=== PATIENT | female | born 1960 | race Two or more races ===

== ENCOUNTER 2021-04-07 14:15 | Emergency (ER) | payer MEDICARE, MEDICAID ==
[~2021-04-07] VITALS: Ht 154.9 cm; Wt 72.7 kg
[2021-04-07 14:58] VITALS: BP 120/71
[2021-04-07 15:22] LABS: BASOPHILS % (AUTO) 0.9 % (0.0-2.0); EOSINOPHILS % (AUTO) 1.2 % (1.0-6.0); HEMATOCRIT 35.3 % (36-46); HEMOGLOBIN 12.3 g/dL (12.0-16.0); LYMPHOCYTES # (AUTO) 1.5 K/uL (1.0-4.8); LYMPHOCYTES % (AUTO) 34.8 % (22.0-44.0); MEAN CORPUSCULAR HEMOGLOBIN 28.4 pg (26.0-34.0); MEAN CORPUSCULAR HGB CONC 34.8 G/dL (31.0-37.0); MEAN CORPUSCULAR VOLUME 82 fL (80-100); MONOCYTES # (AUTO) 0.6 K/uL (0.1-1.0); MONOCYTES % (AUTO) 13.7 % (2.0-9.0); NEUTROPHILS # (AUTO) 2.2 K/uL (1.8-7.7); NEUTROPHILS % (AUTO) 49.4 % (40.0-70.0); PLATELET COUNT (AUTO) 233 K/uL (150-450); RED BLOOD CELL COUNT(AUTO) 4.33 MIL/uL (4.00-5.20); RED CELL DISTRIBUTION WIDTH 12.9 % (11.5-14.5)
[2021-04-07 15:35] LABS: INR 1.1 (0.9-1.1); PROTHROMBIN TIME 11.7 SEC (9.4-11.6)
[2021-04-07 15:43] LABS: B-TYPE NATRIURETIC PEPTIDE 27 pg/mL (0-100)
[2021-04-07 15:53] LABS: ANION GAP 9 mmol/L (8-16); CALCIUM, TOTAL 8.4 mg/dL (8.8-10.5); CARBON DIOXIDE 28 mmol/L (22-29); CHLORIDE 103 mmol/L (98-107); CREATININE 0.81 mg/dL (0.60-1.30); GLOMERULAR FILTR. RATE CALC > 60 mL/min (>60); GLUCOSE,RANDOM 159 mg/dL (70-110); SODIUM SERUM 140 mmol/L (136-145); UREA NITROGEN, BLOOD 14 mg/dL (7-18)
[2021-04-07 15:59] LABS: ALANINE AMINOTRANSFERASE 24 U/L (12-78); ALBUMIN 3.4 g/dL (3.4-5.0); ALKALINE PHOSPHATASE 108 U/L (46-116); ASPARTATE AMINOTRANSFERASE 21 U/L (15-37); BILIRUBIN,TOTAL 0.8 mg/dL (0.1-1.0); CREATINE KINASE, TOTAL ONLY 20 U/L (26-192)
[2021-04-07] MEDS ORDERED: ACETAMINOPHEN 500 MG TABLET PO ONE (16:15)
[2021-04-07 17:55] LABS: COVID AG,FIA SOURCE NASOPHARYNGEAL
[2021-04-07 18:22] LABS: INFLUENZA TYPE A NEGATIVE FOR TYPE A (NEGATIVE); INFLUENZA TYPE B NEGATIVE FOR TYPE B (NEGATIVE)
== END 2021-04-07 20:22 | disposition home or self-care (01) ==
LOC: EMS 14:15
DX: U07.1 COVID-19 (principal)
CPT/HCPCS: 36415; 71045; 80053; 82550; 83880; 84484; 85025; 85610; 85730; 87426; 87804; 93005; 99285; U0003

== ENCOUNTER 2024-05-28 15:38 | Emergency (ER) | payer MEDICARE, MEDICAID ==
[~2024-05-28] VITALS: Ht 157.5 cm; Wt 65.9 kg
[2024-05-28 15:40] VITALS: TEMP 98.2
[2024-05-28 16:23] LABS: BASOPHILS % (AUTO) 0.9 % (0.0-2.0); EOSINOPHILS % (AUTO) 1.6 % (1.0-6.0); HEMATOCRIT 34.6 % (36-46); HEMOGLOBIN 11.8 g/dL (12.0-16.0); LYMPHOCYTES # (AUTO) 3.1 K/uL (1.0-4.8); MEAN CORPUSCULAR HEMOGLOBIN 28.4 pg (26.0-34.0); MEAN CORPUSCULAR VOLUME 84 fL (80-100); MONOCYTES # (AUTO) 0.7 K/uL (0.1-1.0); MONOCYTES % (AUTO) 7.3 % (2.0-9.0); NEUTROPHILS # (AUTO) 5.1 K/uL (1.8-7.7); NEUTROPHILS % (AUTO) 56.2 % (40.0-70.0); PLATELET COUNT (AUTO) 355 K/uL (150-450); RED BLOOD CELL COUNT(AUTO) 4.14 MIL/uL (4.00-5.20); RED CELL DISTRIBUTION WIDTH 14.2 % (11.5-14.5)
[2024-05-28 16:32] LABS: ANION GAP 8 mmol/L (8-16); CALCIUM, TOTAL 8.7 mg/dL (8.8-10.5); CARBON DIOXIDE 29 mmol/L (22-29); CHLORIDE 105 mmol/L (98-107); CREATININE 0.84 mg/dL (0.60-1.30); GLOMERULAR FILTR. RATE CALC > 60 mL/min (>60); GLUCOSE,RANDOM 93 mg/dL (70-110); POTASSIUM 3.9 mmol/L (3.5-5.1); SODIUM SERUM 141 mmol/L (136-145); UREA NITROGEN, BLOOD 13 mg/dL (7-18)
[2024-05-28 16:33] LABS: ALCOHOL, BLOOD (SERUM) < 3 mg/dL (0-10)
[2024-05-28 16:35] LABS: COVID AG,FIA SOURCE NASAL SWAB
[2024-05-28 16:55] LABS: SARS-COV2 (COVID) ANTIGEN,FIA Negative (Negative)
[2024-05-28 17:55] VITALS: BP 128/80; PULSE 80; RESP 16; O2SAT 99
== END 2024-05-28 18:04 | disposition home or self-care (01) ==
LOC: EMS 15:38
DX: F32.9 Major depressive disorder, single episode, unspecified (principal); R45.851 Suicidal ideations; I10 Essential (primary) hypertension; Z88.0 Allergy status to penicillin; Z20.822 Contact with and (suspected) exposure to COVID-19
CPT/HCPCS: 99284; 87426; 80048; 85025; 36415; G0480

== ENCOUNTER 2024-10-21 14:30 | Emergency (ER) | payer OTHER, MEDICAID ==
[~2024-10-21] VITALS: Ht 157.5 cm; Wt 77.3 kg
[2024-10-21 14:35] VITALS: TEMP 98.2
[2024-10-21] MEDS ORDERED: LISI2.5T13 PO (14:41)
[2024-10-21] MEDS ORDERED: TRAZ-252 PO (14:41)
[2024-10-21] MEDS ORDERED: ESCI20TA37 PO (14:41)
[2024-10-21] MEDS ORDERED: HYDR12.56 PO (14:41)
[2024-10-21] MEDS ORDERED: METO25 PO (14:41)
[2024-10-21] MEDS ORDERED: ATOR-2 PO (14:41)
[2024-10-21] MEDS ORDERED: INSU3INS3 SQ (14:41)
[2024-10-21] MEDS ORDERED: EZET10TA57 PO (14:41)
[2024-10-21] MEDS ORDERED: METF-446 PO (14:41)
[2024-10-21 17:00] VITALS: BP 120/60; PULSE 64; RESP 16; O2SAT 100
[2024-10-21] MEDS ORDERED: IBUP-1554 PO (17:03)
[2024-10-21] MEDS ORDERED: ACET-66 PO (17:03)
[2024-10-21] MEDS ORDERED: SULF-261 PO (17:03)
[2024-10-21] MEDS: IBUPROFEN 600 MG TABLET PO ONE (17:14)
[2024-10-21] MEDS: ACETAMINOPHEN 500 MG TABLET PO ONE (17:14)
== END 2024-10-21 17:21 | disposition home or self-care (01) ==
LOC: EMS 14:30
DX: K04.7 Periapical abscess without sinus (principal); E11.9 Type 2 diabetes mellitus without complications; I10 Essential (primary) hypertension; F32.A Depression, unspecified; Z79.84 Long term (current) use of oral hypoglycemic drugs; Z88.0 Allergy status to penicillin; Z79.899 Other long term (current) drug therapy
CPT/HCPCS: 99283